=== PATIENT | female | born 1990 | race Caucasian/White ===

== ENCOUNTER 2019-09-30 08:29 | Emergency (ER) | payer MEDICAID ==
[~2019-09-30] VITALS: Ht 162.6 cm; Wt 60.0 kg
[~2019-09-30 08:29] MED LIST: ALBU6.7H9 INH; GUAI120015 PO; GUAI600T45 PO
[2019-09-30 08:36] VITALS: BP 122/83
[2019-09-30] MEDS ORDERED: AMOX-580 PO (09:55)
[2019-09-30] MEDS ORDERED: BENZ-16 PO (09:55)
== END 2019-09-30 10:03 | disposition home or self-care (01) ==
LOC: ER 08:30
DX: J01.80 Other acute sinusitis (principal); J44.9 Chronic obstructive pulmonary disease, unspecified; F15.90 Other stimulant use, unspecified, uncomplicated; Z79.899 Other long term (current) drug therapy; Z87.442 Personal history of urinary calculi
CPT/HCPCS: 99283

== ENCOUNTER 2020-04-01 11:02 | Emergency (ER) | payer MEDICAID ==
[~2020-04-01] VITALS: Ht 162.6 cm; Wt 56.8 kg
[2020-04-01 11:31] LABS: URINE HCG NEGATIVE (NEG)
[2020-04-01 11:32] LABS: CLARITY,URINE SLIGHTLY CLOUDY (Clear); COLOR,URINE YELLOW (Yellow); GLUCOSE, URINE NEGATIVE (Neg); KETONES,URINE NEGATIVE (Neg); LEUKOCYTE ESTERASE ,URINE NEGATIVE (Neg); NITRITES, URINE NEGATIVE (Neg); OCCULT BLOOD,URINE SMALL (Neg); PH,URINE 5.5 (4.8-8.0); PROTEIN,URINE 30 mg/dl (Neg); UA COLLECTION TYPE CLN CATCH MIDSTREAM; UROBILINOGEN,URINE 0.2 E.U/dL (0.2-1.0)
[2020-04-01 11:38] LABS: MUCUS STRANDS FEW /LPF (Neg); SQUAMOUS EPITHELIAL CELL,UR MODERATE /LPF (FEW)
[2020-04-01 11:39] LABS: HYALINE CASTS 0-3 /LPF (NEGATIVE)
[2020-04-01 11:42] LABS: BACTERIA,URINE FEW /HPF (Neg)
[2020-04-01] MEDS ORDERED: PHEN-716 PO (12:27)
[2020-04-01] MEDS ORDERED: CEPH500C5 PO (12:27)
[2020-04-01 12:43] VITALS: BP 104/71
== END 2020-04-01 12:44 | disposition home or self-care (01) ==
LOC: ER 11:03
DX: N39.0 Urinary tract infection, site not specified (principal); R19.7 Diarrhea, unspecified; M54.5 Low back pain
CPT/HCPCS: 81001; 81025; 87077; 87088; 87186; 99283

== ENCOUNTER 2020-07-15 18:32 | Emergency (ER) | payer MEDICAID ==
[~2020-07-15] VITALS: Ht 167.6 cm; Wt 54.5 kg
[~2020-07-15 18:32] MED LIST changes: +PHEN-716 PO
[2020-07-15 18:40] VITALS: BP 112/70
[2020-07-15] MEDS ORDERED: AMOX-422 PO (20:15)
== END 2020-07-15 20:34 | disposition home or self-care (01) ==
LOC: ER 18:33
DX: S00.511A Abrasion of lip, initial encounter (principal); J44.9 Chronic obstructive pulmonary disease, unspecified; F15.90 Other stimulant use, unspecified, uncomplicated; F11.90 Opioid use, unspecified, uncomplicated; F19.90 Other psychoactive substance use, unspecified, uncomplicated; Z87.01 Personal history of pneumonia (recurrent); Z87.442 Personal history of urinary calculi; Z98.890 Other specified postprocedural states; Z79.2 Long term (current) use of antibiotics; Z79.899 Other long term (current) drug therapy; W55.03XA Scratched by cat, initial encounter; Y93.89 Activity, other specified; Y92.89 Other specified places as the place of occurrence of the external cause; Y99.8 Other external cause status
CPT/HCPCS: 99283

== ENCOUNTER 2021-02-23 06:06 | Emergency (ER) | payer MEDICAID ==
[~2021-02-23] VITALS: Ht 162.6 cm; Wt 50.0 kg
[2021-02-23] MEDS ORDERED: dexamethasone sod phosphate 10mg/ml inj PO STA (06:24)
[2021-02-23] MEDS ORDERED: AMOX-101 PO (06:25)
[2021-02-23 06:44] VITALS: BP 118/77
== END 2021-02-23 06:45 | disposition home or self-care (01) ==
LOC: ER 06:07
DX: J02.9 Acute pharyngitis, unspecified (principal); J44.9 Chronic obstructive pulmonary disease, unspecified; F12.90 Cannabis use, unspecified, uncomplicated; F15.90 Other stimulant use, unspecified, uncomplicated; F11.90 Opioid use, unspecified, uncomplicated; Z87.442 Personal history of urinary calculi; Z87.01 Personal history of pneumonia (recurrent)
CPT/HCPCS: 99283; J1100

== ENCOUNTER 2021-06-23 16:29 | Emergency (ER) | payer MEDICAID ==
[~2021-06-23] VITALS: Ht 162.6 cm; Wt 50.9 kg
[2021-06-23 18:42] VITALS: BP 122/61
== END 2021-06-23 18:44 | disposition home or self-care (01) ==
LOC: ER 16:31
DX: B34.9 Viral infection, unspecified (principal); R13.10 Dysphagia, unspecified; J44.9 Chronic obstructive pulmonary disease, unspecified; F17.210 Nicotine dependence, cigarettes, uncomplicated; F12.90 Cannabis use, unspecified, uncomplicated; F15.90 Other stimulant use, unspecified, uncomplicated; F11.90 Opioid use, unspecified, uncomplicated; F19.90 Other psychoactive substance use, unspecified, uncomplicated; Z79.899 Other long term (current) drug therapy; Z87.01 Personal history of pneumonia (recurrent); Z87.442 Personal history of urinary calculi; Z98.890 Other specified postprocedural states
CPT/HCPCS: 87081; 87880; 99283

== ENCOUNTER 2022-01-19 06:21 | Emergency (ER) | payer MEDICAID ==
[~2022-01-19] VITALS: Ht 162.6 cm; Wt 54.5 kg
[2022-01-19] MEDS ORDERED: BENZ-38 PO (09:07)
[2022-01-19 09:35] LABS: CLARITY,URINE SLIGHTLY CLOUDY (Clear); COLOR,URINE YELLOW (Yellow); GLUCOSE, URINE NEGATIVE (Neg); KETONES,URINE NEGATIVE (Neg); LEUKOCYTE ESTERASE ,URINE TRACE (Neg); NITRITES, URINE POSITIVE (Neg); OCCULT BLOOD,URINE NEGATIVE (Neg); PROTEIN,URINE TRACE mg/dl (Neg); UROBILINOGEN,URINE 0.2 E.U/dL (0.2-1.0)
[2022-01-19 09:38] LABS: UA COLLECTION TYPE CLN CATCH MIDSTREAM
[2022-01-19 09:42] LABS: BACTERIA,URINE 4+ /HPF (Neg); MUCUS STRANDS NONE SEEN /LPF (Neg); RBC,URINE NONE SEEN /HPF (0-2); SQUAMOUS EPITHELIAL CELL,UR FEW /LPF (FEW); WBC,URINE 50-100 /HPF (0-4)
[2022-01-19] MEDS ORDERED: cephalexin 500mg capsule PO ONE (09:50)
[2022-01-19] MEDS ORDERED: CEPH-585 PO (09:52)
[2022-01-19 10:34] VITALS: BP 107/70
== END 2022-01-19 10:36 | disposition home or self-care (01) ==
LOC: ER 06:22
DX: J06.9 Acute upper respiratory infection, unspecified (principal); R19.7 Diarrhea, unspecified; N39.0 Urinary tract infection, site not specified; J44.9 Chronic obstructive pulmonary disease, unspecified; Z87.442 Personal history of urinary calculi; Z87.891 Personal history of nicotine dependence; F12.90 Cannabis use, unspecified, uncomplicated; Z72.89 Other problems related to lifestyle; Z79.899 Other long term (current) drug therapy
CPT/HCPCS: 71046; 81001; 87077; 87088; 87186; 99284

== ENCOUNTER 2022-10-18 11:03 | Emergency (ER) | payer MEDICAID ==
[~2022-10-18] VITALS: Ht 162.6 cm; Wt 56.8 kg
[~2022-10-18 11:03] MED LIST changes: +ALBU6.7H14 INH; -ALBU6.7H9 INH; +CEPH-585 PO
[2022-10-18 11:18] VITALS: BP 137/92
--- NOTE | 2022-10-18 12:32 | NUR ---
Head laceration irrigated with normal saline per provider verbal order.
[2022-10-18] MEDS ORDERED: TETanus/Pertussis (Acell)/Diphther VAC/PF (Tdap-Adult) 0.5ml syringe IMVAC ONE (13:05)
--- NOTE | 2022-10-18 13:13 | NUR ---
vaccine lot [id number], : 01/16/2025
== END 2022-10-18 13:28 | disposition home or self-care (01) ==
LOC: ER 11:03
DX: S01.01XA Laceration without foreign body of scalp, initial encounter (principal); J44.9 Chronic obstructive pulmonary disease, unspecified; F12.90 Cannabis use, unspecified, uncomplicated; Z87.442 Personal history of urinary calculi; Z72.89 Other problems related to lifestyle; Z79.899 Other long term (current) drug therapy; W18.39XA Other fall on same level, initial encounter; Y93.89 Activity, other specified; Y92.89 Other specified places as the place of occurrence of the external cause; Y99.8 Other external cause status
CPT/HCPCS: 12034; 90471; 90715; 99284; A6449

== ENCOUNTER 2022-10-25 06:02 | Emergency (ER) | payer MEDICAID ==
[~2022-10-25] VITALS: Ht 162.6 cm; Wt 49.4 kg
[2022-10-25 06:07] VITALS: BP 121/89
== END 2022-10-25 06:56 | disposition home or self-care (01) ==
LOC: ER 06:03
DX: S01.01XD Laceration without foreign body of scalp, subsequent encounter (principal); J44.9 Chronic obstructive pulmonary disease, unspecified; F12.90 Cannabis use, unspecified, uncomplicated; Z72.89 Other problems related to lifestyle; Z87.442 Personal history of urinary calculi; Z79.899 Other long term (current) drug therapy; W01.0XXD Fall on same level from slipping, tripping and stumbling without subsequent striking against object, subsequent encounter
CPT/HCPCS: 99281

== ENCOUNTER 2025-02-09 08:34 | Outpatient (CLI) | payer MEDICAID ==
[~2025-02-09 08:34] MED LIST changes: -CEPH-585 PO
--- NOTE | 2025-02-09 10:11 | RADIOLOGY REPORT ---
INDICATION: ELEVATED LIVER ENZYMES TECHNIQUE: Multiple real-time sonographic images of the abdomen were obtained. COMPARISON: None FINDINGS: The liver is homogenous in echogenicity. The liver measures 16cm. No intrahepatic biliary ductal dilatation is noted. The gallbladder wall measures 0.2 cm and is unremarkable. No gallstones or sludge is seen. The com mon duct measures 0.2 cm and is unremarkable. No pericholecystic fluid is noted. The right kidney measures 9.0cm. No hydronephrosis. The left kidney measures 10.4cm. No hydronephro sis. The spleen measures 9.1cm, within normal limits. The echogenicity is within normal limits. The pancreas is not well visualized due to obscuration from bowel gas. The visualized portions of the IVC and aorta are grossly unremarkable. IMPRESSION: Normal exam of the abdomen.
== END 2025-02-09 23:59 | disposition home or self-care (01) ==
LOC: RAD 08:34
PROVIDERS: ATTEND Nurse Practitioner Family
DX: R74.8 Abnormal levels of other serum enzymes (principal)
CPT/HCPCS: 76700